=== PATIENT | male | born 1985 | race African-American/Black ===

== ENCOUNTER 2018-08-23 03:25 | Emergency (ER) | payer MEDICAID ==
[~2018-08-23] VITALS: Ht 182.9 cm; Wt 103.0 kg
[2018-08-23] MEDS ORDERED: LIDOCAINE HCL/EPINEPHRINE 1%-EPI 1:100,000 20 ML VIAL INFIL ONE (06:45)
[2018-08-23] MEDS ORDERED: LIDOCAINE/EPINEPHR/TETRACAINE 3ML TP ONE (06:45)
[2018-08-23] MEDS ORDERED: ACETAMINOPHEN 325MG TABLET PO ONE (07:45)
[2018-08-23] MEDS ORDERED: CEFTRIAXONE SODIUM 1 G/VIAL IM ONE (08:15)
[2018-08-23] MEDS ORDERED: LIDOCAINE HCL/PF 1% 2ML VIAL INFIL ONE (08:30)
[2018-08-23] MEDS ORDERED: LIDOCAINE HCL/PF 1% 10 MG/ML 5ML VIAL IJ ONE (08:45)
[2018-08-23] MEDS ORDERED: LIDOCAINE HCL 1% 20ML VIAL (Pyxis) INJ INJ ONE (08:45)
[2018-08-23 10:31] LABS: OPIATES URINE SCREEN NEGATIVE (NEGATIVE)
[2018-08-23 10:37] LABS: *AMPHETAMINES SCREEN URINE PRESUMTIVE POSITIVE (NEGATIVE); *BARBITURATES SCREEN URINE NEGATIVE (NEGATIVE); *BENZODIAZEPINES SCREEN URINE NEGATIVE (NEGATIVE); *COCAINE SCREEN URINE PRESUMTIVE POSITIVE (NEGATIVE); CANNABINOID URINE SCREEN NEGATIVE (NEGATIVE); METHADONE URINE SCREEN NEGATIVE (NEGATIVE); PHENCYCLIDINE URINE SCREEN NEGATIVE (NEGATIVE)
[2018-08-23] MEDS ORDERED: IBUPROFEN 800MG TABLET PO ONE (11:15)
[2018-08-23 12:48] VITALS: BP 117/76
== END 2018-08-23 14:31 | disposition home or self-care (01) ==
LOC: ER 03:25
DX: S01.511A Laceration without foreign body of lip, initial encounter (principal); J45.909 Unspecified asthma, uncomplicated; F15.10 Other stimulant abuse, uncomplicated; F14.10 Cocaine abuse, uncomplicated; Z59.0 Homelessness; Y04.0XXA Assault by unarmed brawl or fight, initial encounter; Y93.89 Activity, other specified; Y92.488 Other paved roadways as the place of occurrence of the external cause
CPT/HCPCS: 70110; 80305; 96372; 99285; J0696; J3490